=== PATIENT | male | born 1955 | race Caucasian/White ===

== ENCOUNTER → 2017-08-27 | Day surgery (SDC) | payer OTHER ==
[~2017-08-27] MED LIST: ADVIL PM LIQUI1 EACH PO; ASPIR 8181 MG PO; BELLADONNA/OPIUM 60 MG SUPP PR ONE; CEFTRIAXONE SOD 1 GM VIAL ONE; CENTRUM SILVER1 EAC3 PO; CO Q-10 100 MG1 EACH PO; CRESTOR10 MG PO; DEXAMETHASONE SOD PHOS INJ 4 MG/ML VIAL ONE; FENTANYL CITRATE/PF 100MCG/2 ML INJ ONE; FINASTERIDE5 MG PO; FLOMAX0.4 MG PO; GENTAMICIN 80MG/NS 100 ML 200 ML IV ONE; GLUCOSAMINE &1 EAC1 PO; IOPAMIDOL 610MG/1ML 300 MG/ML VIAL IV ONE; LIDOCAINE HCL 2% LOCAL INJ 5 ML SDV VIAL INJ ONE; LOSARTAN POTAS100 MG PO; MIDAZOLAM HCL 2 MG/2 ML VIAL ONE; OMEGA-3 KRILL1 EACH PO; ONDANSETRON HCL INJ 2 MG/ML VIAL ONE; PROPOFOL IV EMULSION 10 MG/ML 20 ML VIAL ONE; SEVOFLURANE INHAL SOLN 250 ML PEN BTL ONE; VITAMIN D35000 UNIT PO
--- OUTSIDE RECORDS SUMMARY | 2017-08-27 08:14 | XMS REPORT | Clinical Summary ---
Author Author [facility] Address Unknown Phone Unavailable Care Team Providers Care Installation Service Representative Name Role Phone Phoenix Amanda MD PCP Allergies Active Allergy Reactions Severity Noted Date Comments Acetaminophen Itching 08/07/2016 Current Medications Prescription Sig. Disp. Refills Start End Date Status Date rosuvastatin (CRESTOR) 10 Take 10 mg by mouth Active MG tablet daily. aspirin (ECOTRIN) 81 MG Take 81 mg by mouth Active enteric coated tablet daily. losartan (COZAAR) 100 MG Take 50 mg by mouth Active tablet daily. tamsulosin (FLOMAX) 0.4 Take 0.4 mg by mouth Active mg capsule,extended daily. release 24hr ondansetron (ZOFRAN, Take 1 tablet (4 mg 20 tablet 0 10/08/19 HYDROCHLORIDE,) 4 MG total) by mouth every 8 17 17 tablet (eight) hours as needed for nausea or vomiting for up to 30 days. HYDROcodone-acetaminophen Take 1 tablet by mouth 30 tablet 0 10/09/19 10/19/19 (NORCO) 5-325 mg per every 4 (four) hours as 17 17 tablet needed for moderate pain for up to 10 days. Max Daily Amount: 6 tablets Active Problems No known active problems Encounters Date Type Specialty Care Team Description 11/24/2016 Office Visit Ortho Sports Medicine Jd Nixon Orthopedic aftercare (Primary Dx) 10/22/2016 Office Visit Ortho Sports Medicine Jd Nixon Orthopedic aftercare (Primary Dx) 10/08/2016 Orders Only Ortho Sports Medicine Dana Broussard MA 10/08/2016 Telephone Orthopedic Surgery Jd Nixon MD 10/07/2016 Hospital Jd Nixon Encounter MD 10/07/2016 Procedure Pass 10/07/2016 Surgery Jd Nixon RELEASE CARPAL TUNNEL 10/06/2016 Anesthesia Sanjeev Garber MD Event 09/08/2016 Office Visit Ortho Sports Medicine Jd Nixon, Carpal tunnel syndrome of MD right wrist (Primary Dx) 09/03/2016 Telephone Orthopedic Surgery Jd Nixon MD 08/31/2016 Procedure visit Neurology Alysia Anaya MD Bilateral carpal tunnel syndrome after 08/26/2016 Family History Medical History Relation Name Comments Hypertension Sister Relation Name Status Comments Sister Social History Tobacco Use Types Packs/Day Years Used Date Never Smoker Smokeless Tobacco: Never Used Alcohol Use Drinks/Week oz/Week Comments Yes 1 Cans of 0.6 weekends beer Sex Assigned at Date Recorded Not on file Last Filed Vital Signs Vital Sign Reading Time Taken Blood Pressure 124/77 11/24/2016 8:09 AM CDT Pulse 56 11/24/2016 8:09 AM CDT Temperature 36.6 C (97.9 F) 10/07/2016 7:56 AM CDT Respiratory Rate 20 10/07/2016 8:30 AM CDT Oxygen Saturation 96% 10/07/2016 8:30 AM CDT Inhaled Oxygen - - Concentration Weight 113 kg (250 lb) 11/24/2016 8:09 AM CDT Height 188 cm (6' 2") 11/24/2016 8:09 AM CDT Body Mass Index 32.1 11/24/2016 8:09 AM CDT Plan of Treatment Health Maintenance Due Date Last Done Comments COLONOSCOPY 11/03/2003 SHINGRIX VACCINE (#1) 11/03/2003 ZOSTER VACCINE 2013 INFLUENZA VACCINE 11/17/2017 Procedures Procedure Name Priority Date/Time Associated Diagnosis Comments RELEASE, CARPAL TUNNEL 10/07/2016 RIGHT CARPAL TUNNEL 7:15 AM CDT SYNDROME G56.01 Special Needs SUPINE, 1% LIDOCAINE WITH EPI after 08/26/2016 Results * HGB & HCT I-Stat (10/07/2016 5:25 AM) Component Value Ref Range Hematocrit, whole blood 46.0Comment: performed by [id number] 36.0 - 50.0 % Hemoglobin, whole blood 15.6Comment: performed by [id number] 11.0 - 17.0 g/dL Specimen Performing Laboratory Plasma specimen [facility] DEPARTMENT OF PATHOLOGY AND GENOMIC MEDICINE [id number] [place] [address] [place] [address] after 08/26/2016 Insurance Payer Benefit Subscriber ID Type Phone Address Plan / Group AETNA AETNA xxxxxxxxxx HMO HMO,POS,EP O, MC/EC Work: [id number] [facility] [place] [id number] Home:
--- NOTE | 2017-10-06 02:28 | Operative Report ---
DATE OF PROCEDURE: August 27, 2017 PREOPERATIVE DIAGNOSES 1. Obstructive BPH. 2. History of urinary infection. POSTOPERATIVE DIAGNOSES 1. Obstructive BPH. 2. History of urinary infection. OPERATIONS PERFORMED 1. Cystourethroscopy with bilateral ureteral catheterization and retrograde ureteropyelography (separately performed for the urinary tract infections). 2. Interpretation of retrograde ureteropyelography. 3. Supervision of fluoroscopy. No radiologist present. 4. Cystourethroscopy with transurethral implantation of 4 UroLift implants. ANESTHESIA: General. COMPLICATIONS: None. CLINICAL SUMMARY: Mc Awad is a 61-year-old male with history of urinary tract infections and obstructive BPH. He was brought for the above procedures. He is aware of the risks of bleeding, infection, injury to adjacent structures, need for additional procedures, and elected to proceed. OPERATIVE PROCEDURE IN DETAIL: Informed consent was verified. Mc Awad was properly identified, taken to operating room, placed on the cystoscopy table in supine position. Anesthesia was uneventfully begun. The patient was then carefully and gently repositioned in the dorsal lithotomy position with all pressure points well padded. His genitalia were prepared and draped in usual sterile fashion. The 22.5-Tajik cystoscope sheath with the visual obturator in place was atraumatically inserted in patient's urethra. It was guided down the unremarkable urethra through the normal sphincteric region through the prostate bed, was significant for bilobar prostatic hypertrophy with an elevated median bar. Panendoscopy of urinary bladder revealed no suspicious mucosal lesions. No tumors, no stones, and no diverticula. There were trabeculations noted, which corresponded to patient's history of overactive bladder and urge-type urinary incontinence. An 8-Tajik catheter was used to cannulate each ureter and retrograde ureteropyelography was performed. Interpretation of retrograde ureteropyelography: Contrast was instilled in retrograde fashion bilaterally. There were no tumors, no stones, and no diverticula. Unobstructed drainage was observed bilaterally fluoroscopically promptly. There was bilateral distal ureteral fullness that was appreciated. The patient's bladder was then drained. The cystoscope was withdrawn. The 20-Tajik cystoscope was inserted with the visual obturator in place. We then placed 4 UroLift implants. Implants were placed anterolaterally. Two were placed approximately 1.5 cm distal to the bladder neck and 2 were placed at the level of the verumontanum. This resulted in a continuous anterior channel that was open. The patient's bladder was drained. Cystoscope was withdrawn. Digital rectal examination was done upon placement of a belladonna and opium suppository. It revealed a 35-g prostate, smooth, non-fluctuant without any nodules. Previous measurements revealed that the prostate was 46 mL by ultrasonography. The patient was uneventfully reversed from anesthesia and taken to recovery room in stable condition. There were no complications to the procedure. He tolerated the procedure well. Explicit postoperative instructions were given. Will follow the patient up in the office. At which point in time, will perform uroflowmetry and bladder ultrasonography. Job#: [id number] CQ cc:VERN FERNANDEZ MD
== END | disposition home or self-care (01) ==
LOC: OR 08:12
PROVIDERS: ATTEND Urology
DX: N40.1 Benign prostatic hyperplasia with lower urinary tract symptoms (principal); N13.8 Other obstructive and reflux uropathy; N32.89 Other specified disorders of bladder; N39.41 Urge incontinence; N32.81 Overactive bladder; N39.0 Urinary tract infection, site not specified; I10 Essential (primary) hypertension; E78.5 Hyperlipidemia, unspecified; Z01.810 Encounter for preprocedural cardiovascular examination; Z79.82 Long term (current) use of aspirin
CPT/HCPCS: 52005; C9740; 74420; 93005; J0696; J1100; J1580; J2001; J2250; J2405